=== PATIENT | male | born 1950 | race Caucasian/White ===

== ENCOUNTER 2018-04-29 08:10 | Day surgery (SDC) | payer BC ==
[~2018-04-29 08:10] MED LIST: Lactated Ringers 1,000 ML IV SCH
[2018-04-29] MEDS ORDERED: fentaNYL 100 MCG/2 ML SDV ONE (11:10)
[2018-04-29] MEDS ORDERED: Propofol 200 MG/20 ML SDV ONE (11:10)
[2018-04-29 12:48] VITALS: BP 127/78
--- NOTE | 2018-04-30 12:43 | OR ---
PREOPERATIVE DIAGNOSIS: Previous history of colon cancer and polyps. POSTOPERATIVE DIAGNOSES: Normal colonoscopic exam, previous sigmoidectomy. PROCEDURE PROPOSED: Total flexible colonoscopy. PROCEDURE DONE: Total flexible colonoscopy. INDICATION: This is a 67-year-old gentleman who comes in for recommended colonic surveillance due to history of colon cancer diagnosed in 2010. His last colonoscopy was in 01/2015, comes in now for continued colonic surveillance. TECHNIQUE: The patient brought to the endoscopy suite, placed in the left lateral decubitus position. He was sedated per [employer] with propofol. The flexible video colonoscope was then passed transanally and under visualization advanced to the cecum. Examination revealed a normal ascending, transverse, descending colon. The sigmoid colon was predominantly surgically absent and the anastomosis was noted at 15 cm and the remainder of the rectosigmoid below that anastomosis was normal. There were no signs of any polyps, diverticulosis, colitis, or any other abnormalities. The scope was then withdrawn. The patient tolerated procedure well. FINAL IMPRESSION: 1. Essentially normal colonoscopic exam status post sigmoidectomy. 2. History of previous colon cancer and polyps. PLAN: The patient was reassured. I felt he could wait 5 years before he needs his next followup exam. SCM: 04/29/2018 11:40:07 MODL: 04/29/2018 16:43:49 /[id number]
== END 2018-04-29 12:45 | disposition home or self-care (01) ==
LOC: VM.SDS 08:10
PROVIDERS: ATTEND Surgery
DX: Z12.11 Encounter for screening for malignant neoplasm of colon (principal); E66.9 Obesity, unspecified; Z68.30 Body mass index [BMI] 30.0-30.9, adult; E78.5 Hyperlipidemia, unspecified; H91.91 Unspecified hearing loss, right ear; Z85.038 Personal history of other malignant neoplasm of large intestine; Z87.891 Personal history of nicotine dependence; Z90.49 Acquired absence of other specified parts of digestive tract; Z88.0 Allergy status to penicillin; Z99.89 Dependence on other enabling machines and devices
CPT/HCPCS: 45378; J2704; J3010; J7120

== ENCOUNTER 2024-02-22 06:26 | Day surgery (SDC) | payer MEDICARE, BC ==
[2024-02-22] MEDS: Lactated Ringers 1,000 ML IV SCH (06:49)
[2024-02-22] MEDS ORDERED: Propofol 200 MG/20 ML SDV ONE (07:39)
[2024-02-22] MEDS ORDERED: fentaNYL 100 MCG/2 ML SDV ONE (07:39)
[2024-02-22 08:37] VITALS: BP 121/64; PULSE 60
== END 2024-02-22 09:35 | disposition home or self-care (01) ==
LOC: VM.SDS 06:26
PROVIDERS: ATTEND Student in an Organized Health Care Education/Training Program
DX: Z12.11 Encounter for screening for malignant neoplasm of colon (principal); D12.0 Benign neoplasm of cecum; D12.2 Benign neoplasm of ascending colon; K62.1 Rectal polyp; K51.40 Inflammatory polyps of colon without complications; I11.0 Hypertensive heart disease with heart failure; I50.42 Chronic combined systolic (congestive) and diastolic (congestive) heart failure; E78.5 Hyperlipidemia, unspecified; E66.9 Obesity, unspecified; Z87.891 Personal history of nicotine dependence; Z79.899 Other long term (current) drug therapy; Z88.0 Allergy status to penicillin; Z88.6 Allergy status to analgesic agent
CPT/HCPCS: 00811; 45385; 88305; J2704; J3010; J7120